=== PATIENT | female | born 1955 | race American Indian/Alaskan Native ===

== ENCOUNTER 2017-05-22 15:49 | Emergency (ER) | payer MEDICARE ==
[2017-05-22] MEDS ORDERED: NORCO 5/325 PO ONE (20:55)
--- NOTE | 2017-05-22 21:02 | Emergency Department Report ---
ED General Adult HPI - General Chief complaint: Urogenital-Female Stated complaint: NEED CATH CHANGE Time Seen by Provider: 05/22/17 20:45 Source: patient, family Mode of arrival: Wheelchair Limitations: Physical Limitation - History of Present Illness Initial comments: PT states that she needs her catheter changed. PT states that she will have pains from the catheter and it will feel like something is sticking her. PT states that she moved from [place], [place] one month ago and she has PCP but has not had home health established yet. PT states she is currently living with her daughter. PT states she was in another ED on 05-05-17 for UTI. PT states her catheter was changed at that time. 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 PT States she saw her PCP today. PT states her PCP did a urinalysis and dx her with UTI. PT states a urine culture is pending and that she was given an RX for an antibiotic and was told to go to the ED to have her wheeler changed. -: Gradual, days(s) Location: pelvis Quality: stabbing Consistency: intermittent Associated Symptoms: denies: fever/chills, nausea/vomiting Treatments Prior to Arrival: none - Related Data Allergies Allergy/AdvReac Type Severity Reaction Status Date / Time No Known Allergies Allergy Unverified 05/22/17 17:41 ED Review of Systems ROS: Stated complaint: NEED CATH CHANGE Other details as noted in HPI Comment: All other systems reviewed and negative Constitutional: denies: chills, fever Gastrointestinal: abdominal pain (intermittent bladder spasms ). denies: nausea , vomiting Genitourinary: other (cloudy urine, pain ) ED Past Medical Hx - Past Medical History Previous Medical History?: Yes Additional medical history: Ms, Frequent UTI - Surgical History Past Surgical History?: Yes Additional Surgical History: Back surgery, Hysterectomy - Social History Smoking Status: Never Smoker Substance Use Type: Prescribed ED Physical Exam - General Limitations: Physical Limitation General appearance: alert, in no apparent distress - Head Head exam: Present: atraumatic, normocephalic, normal inspection - Eye Eye exam: Present: normal appearance. Absent: conjunctival injection - ENT ENT exam: Present: normal exam, mucous membranes moist, normal external ear exam - Neck Neck exam: Present: normal inspection, full ROM - Respiratory Respiratory exam: Present: normal lung sounds bilaterally. Absent: respiratory distress, chest wall tenderness - Cardiovascular Cardiovascular Exam: Present: regular rate, normal rhythm, normal heart sounds - GI/Abdominal GI/Abdominal exam: Present: soft, tenderness (suprapubic tenderness to deep palpation ), normal bowel sounds. Absent: distended - External exam: Present: other (wheeler in place, cloudy urine noted to bed side bag ) - Extremities Exam Extremities exam: Present: normal inspection, normal capillary refill, calf tenderness - Back Exam Back exam: Present: normal inspection, full ROM - Neurological Exam Neurological exam: Present: alert, oriented X3 - Psychiatric Psychiatric exam: Present: normal affect, normal mood - Skin Skin exam: Present: warm, dry, intact, normal color ED Course Vital Signs 05/22/17 17:41 Temperature 98.3 F Pulse Rate 74 Respiratory 18 Rate Blood Pressure 133/72 O2 Sat by Pulse 100 Oximetry - Reevaluation(s) Reevaluation #1: 05/22/17 21:06 PT aware of plan of care. Reevaluation #2: 05/22/17 23:04 PT's wheeler changed. PT treated empirically for UTI while in ED. PT states she has her RX from her PCP and will follow up with PCP for urine culture. - Pulse Oximetry Interpretation Digit-Finger Initial Pulse Oximetry Readin Actions Taken: none ED Medical Decision Making - Differential Diagnosis uti, dysuria Critical Care Time: No Critical care attestation.: If time is entered above; I have spent that time in minutes in the direct care of this critically ill patient, excluding procedure time. ED Disposition Clinical Impression: Encounter for Wheeler catheter replacement, Dysuria Disposition: TO HOME OR SELFCARE Is pt being admited?: No Does the pt Need Aspirin: No Condition: Stable Instructions: Urinary Tract Infection in Women (ED), Wheeler Catheter Insertion ( ED), Wheeler Catheter Placement and Care (ED), Urinary Leg Bag (GEN) Additional Instructions: Take the antibiotics that your doctor prescribed you today Return to the ED if you are having pain in your side, fevers, vomiting or concerns. Referrals: MAUREEN MOSQUEDA [Other] - 3-5 Days Time of Disposition: 22:33
[2017-05-22] MEDS ORDERED: BACTRIM DS PO ONE (22:33)
[2017-05-22 23:42] VITALS: BP 126/75
== END 2017-05-22 23:10 | disposition home or self-care (01) ==
LOC: ED 15:49
DX: Z46.6 Encounter for fitting and adjustment of urinary device (principal); R30.0 Dysuria
CPT/HCPCS: 51702

== ENCOUNTER 2018-12-18 08:45 | Emergency (ER) | payer MEDICARE ==
--- NOTE | 2018-12-18 13:26 | Emergency Department Report ---
ED Female HPI - General Chief complaint: Urogenital-Female Stated complaint: CATHETER NEED CHANGE Time Seen by Provider: 12/18/18 13:08 Source: family Mode of arrival: Wheelchair Limitations: No Limitations - History of Present Illness Initial comments: Mrs. Soto is a very pleasant 62-year-old female with history of MS who has irritation at insertion point of Mcfarlane catheter at the urethra. She normally has home health nurse to change his Mcfarlane catheter. However due to change in health insurance, the service appear to be haven't halted. She is followed by both PCP and neurologist. She's has dark cloudy urine in the collection bag with sediment throughout the tubing. She denies fever. SHe denies abdominal pain. She denies malaise. She also requests that I evaluate her sacral decubitus ulcer. She only has home health care weekly basis. Her caregiver Nic is at the bedside. Patient is bedbound due to multiple sclerosis. MD Complaint: other (irritation at Mcfarlane insertion point) -: Gradual, days(s) (several) Severity: mild Quality: burning Consistency: constant Improves with: none Worsens with: none Are you Now?: No - Related Data Previous Rx's Medication Instructions Recorded Last Taken Type Cephalexin [Keflex] 500 mg PO QID 10 Days #40 capsule 12/18/18 Unknown Rx Allergies Allergy/AdvReac Type Severity Reaction Status Date / Time No Known Allergies Allergy Verified 12/18/18 08:46 ED Review of Systems ROS: Stated complaint: CATHETER NEED CHANGE Other details as noted in HPI Comment: All other systems reviewed and negative Constitutional: denies: fever, malaise Respiratory: denies: cough Cardiovascular: denies: chest pain ED Past Medical Hx - Past Medical History Previous Medical History?: Yes Additional medical history: Ms, Frequent UTI - Surgical History Additional Surgical History: Back surgery, Hysterectomy - Social History Smoking Status: Never Smoker Substance Use Type: Prescribed - Medications Home Medications: Home Medications Medication Instructions Recorded Confirmed Last Taken Type Cephalexin [Keflex] 500 mg PO QID 10 Days #40 capsule 12/18/18 Unknown Rx ED Physical Exam - General Limitations: No Limitations General appearance: alert, in no apparent distress - Head Head exam: Present: atraumatic, normocephalic - Eye Eye exam: Present: normal appearance - ENT ENT exam: Present: mucous membranes moist - Neck Neck exam: Present: normal inspection, full ROM - Respiratory Respiratory exam: Present: normal lung sounds bilaterally. Absent: respiratory distress, wheezes, rales, rhonchi - Cardiovascular Cardiovascular Exam: Present: regular rate, normal rhythm, normal heart sounds. Absent: systolic murmur, diastolic murmur, rubs, gallop - GI/Abdominal GI/Abdominal exam: Present: soft, normal bowel sounds. Absent: distended, tenderness, guarding, rebound - External exam: Present: normal external exam, other (Mcfarlane catheter in place: Dark cloudy urine in collection bag + sediment throughout tubing). Absent: erythema, swelling, lesions, lacerations, ecchymosis, bleeding - Extremities Exam Extremities exam: Present: normal inspection - Back Exam Back exam: Present: normal inspection - Neurological Exam Neurological exam: Present: alert, oriented X3 - Psychiatric Psychiatric exam: Present: normal affect, normal mood - Skin Skin exam: Present: intact, other (stage I sacral decubitus ulcer without infection). Absent: rash ED Medical Decision Making - Medical Decision Making Mrs. Soto presents with need for Mcfarlane catheter change. Mcfarlane catheter is normally changed monthly. She also has evidence of urinary tract infection. Prescribed Keflex. Critical care attestation.: If time is entered above; I have spent that time in minutes in the direct care of this critically ill patient, excluding procedure time. ED Disposition Clinical Impression: Urinary catheter (Mcfarlane) change required, Complicated UTI (urinary tract infection) Disposition: - TO HOME OR SELFCARE Is pt being admited?: No Does the pt Need Aspirin: No Condition: Stable Instructions: Mcfarlane Catheter Placement and Care (ED), Urinary Tract Infection in Women (ED) Prescriptions: Cephalexin [Keflex] 500 mg PO QID 10 Days #40 capsule Referrals: TRUDI GONZALEZ MD [Primary Care Provider] - 3-5 Days
[2018-12-18] MEDS ORDERED: KEFLEX PO ONE (13:28)
[2018-12-18 13:58] VITALS: BP 132/57
[2018-12-18 14:50] LABS: Mucus,Urine FEW /HPF
[2018-12-18 14:57] LABS: Bilirubin,Urine NEG (Negative); Blood,Urine NEG (Negative); Color,Urine Yellow (Yellow); Protein,Urine <15 mg/dL mg/dL (Negative); Urobilinogen,Urine < 2.0 mg/dL (<2.0)
== END 2018-12-18 14:48 | disposition home or self-care (01) ==
LOC: ED 08:45
DX: N39.0 Urinary tract infection, site not specified (principal); Z90.710 Acquired absence of both cervix and uterus
CPT/HCPCS: 51702; 81001; 87086; 99283

== ENCOUNTER 2019-04-21 23:33 | Emergency (ER) | payer MEDICARE ==
--- NOTE | 2019-04-22 00:06 | Emergency Department Report ---
ED Female HPI - General Chief complaint: Urogenital-Female Stated complaint: CATHETER CAME OUT Time Seen by Provider: 04/22/19 00:01 Source: patient, EMS Mode of arrival: Stretcher Limitations: Physical Limitation - History of Present Illness Initial comments: Mrs. Brad Negron is a very pleasant 63-year-old male with history of multiple sclerosis. She is currently bedridden. She came by EMS for Mcfarlane catheter insertion. She had a new Mcfarlane catheter inserted 2 days ago on Monday. The Mcfarlane catheter dislodged. She does not have any other concerns. Complaint: other (Mcfarlane catheter dislodged) -: Sudden, This afternoon Improves with: none Worsens with: none Associated Symptoms: denies other symptoms - Related Data Previous Rx's Medication Instructions Recorded Last Taken Type Cephalexin [Keflex] 500 mg PO QID 10 Days #40 capsule 12/18/18 Unknown Rx Allergies Allergy/AdvReac Type Severity Reaction Status Date / Time No Known Allergies Allergy Verified 12/18/18 08:46 ED Review of Systems ROS: Stated complaint: CATHETER CAME OUT Other details as noted in HPI Constitutional: denies: fever, malaise Genitourinary: denies: urgency, dysuria, frequency, hematuria, discharge Musculoskeletal: denies: back pain ED Past Medical Hx - Past Medical History Previous Medical History?: Yes Hx Hypertension: Yes Additional medical history: Ms, Frequent UTI - Surgical History Additional Surgical History: Back surgery, Hysterectomy - Social History Smoking Status: Never Smoker Substance Use Type: None - Medications Home Medications: Home Medications Medication Instructions Recorded Confirmed Last Taken Type Cephalexin [Keflex] 500 mg PO QID 10 Days #40 capsule 12/18/18 Unknown Rx ED Physical Exam - General Limitations: Physical Limitation General appearance: alert, in no apparent distress - Head Head exam: Present: atraumatic, normocephalic - Eye Eye exam: Absent: scleral icterus, conjunctival injection - ENT ENT exam: Present: mucous membranes moist - Neck Neck exam: Present: normal inspection, full ROM. Absent: tenderness, meningismus - Respiratory Respiratory exam: Absent: respiratory distress - Neurological Exam Neurological exam: Present: alert, oriented X3 - Psychiatric Psychiatric exam: Present: normal affect, normal mood ED Course Vital Signs 04/21/19 23:47 Temperature 98.3 F Pulse Rate 78 Respiratory 18 Rate Blood Pressure 133/73 O2 Sat by Pulse 100 Oximetry ED Medical Decision Making - Medical Decision Making Mrs. Negron presents via EMS from home for Mcfarlane catheter placement. Mcfarlane catheter was placed by nurse. She will be discharged home. Critical care attestation.: If time is entered above; I have spent that time in minutes in the direct care of this critically ill patient, excluding procedure time. ED Disposition Clinical Impression: Mcfarlane catheter problem, Multiple sclerosis Disposition: DC-01 TO HOME OR SELFCARE Is pt being admited?: No Does the pt Need Aspirin: No Condition: Stable
[2019-04-22 02:00] VITALS: BP 125/67
== END 2019-04-22 02:00 | disposition home or self-care (01) ==
LOC: ED 23:33
DX: T83.028A Displacement of other urinary catheter, initial encounter (principal); I10 Essential (primary) hypertension; Z90.710 Acquired absence of both cervix and uterus; Z98.890 Other specified postprocedural states; Z79.899 Other long term (current) drug therapy; Y84.8 Other medical procedures as the cause of abnormal reaction of the patient, or of later complication, without mention of misadventure at the time of the procedure; Y92.89 Other specified places as the place of occurrence of the external cause
CPT/HCPCS: 51702; 99283

== ENCOUNTER 2019-05-23 20:31 | Emergency (ER) | payer MEDICARE ==
--- NOTE | 2019-05-23 20:49 | Emergency Department Report ---
HPI - General Chief Complaint: Tube Replacement Time Seen by Provider: 05/23/19 20:40 - HPI HPI: 63-year-old -[place] female presents to the emergency department via EMS from home with the complaint of a malfunctioning Mcfarlane catheter. The patient has this in place secondary to her multiple sclerosis. She says that she is in between home health care agency's and therefore does not have anyone to change it for her but it feels like it is not draining. She denies any abdominal pain or distention, fever, nausea or vomiting. She says that this has been happening about every 3 weeks. She recently was on some antibiotics for a urinary tract infection. Her primary care physician is Dr. Chavez and her urologist is Dr. Cisneros.. ED Past Medical Hx - Past Medical History Hx Hypertension: Yes Additional medical history: Ms, Frequent UTI - Surgical History Additional Surgical History: Back surgery, Hysterectomy - Social History Smoking Status: Never Smoker Substance Use Type: None - Medications Home Medications: Home Medications Medication Instructions Recorded Confirmed Last Taken Type Cephalexin [Keflex] 500 mg PO QID 10 Days #40 capsule 12/18/18 Unknown Rx ED Review of Systems ROS: Stated complaint: CATHETER PAIN Other details as noted in HPI Comment: All other systems reviewed and negative Constitutional: denies: chills, fever Respiratory: denies: cough, shortness of breath Cardiovascular: denies: chest pain, palpitations Gastrointestinal: denies: abdominal pain, vomiting Genitourinary: denies: dysuria, discharge Musculoskeletal: denies: back pain, arthralgia Physical Exam - Physical Exam Physical Exam: GENERAL: The patient is well-developed well-nourished. HENT: Normocephalic. Atraumatic. Patient has moist mucous membranes. EYES: Extraocular motions are intact. NECK: Supple. Trachea is midline. CHEST/LUNGS: Clear to auscultation. There is no respiratory distress noted. HEART/CARDIOVASCULAR: Regular. There is no tachycardia. There is no murmur. ABDOMEN: Abdomen is soft, nontender. Patient has normal bowel sounds. There is no abdominal distention. SKIN: Skin is warm and dry. NEURO: The patient is awake, alert, and oriented. The patient is cooperative. The patient has normal speech. MUSCULOSKELETAL: There is no tenderness or deformity. There is no evidence of acute injury. ED Medical Decision Making - Medical Decision Making This patient presents with the complaint of malfunctioning Mcfarlane catheter. The Mcfarlane catheter was replaced and now appears to be patent and is draining urine. The urine was tested and does not appear consistent with any significant urinary tract infection. There are only 10 white blood cells found in the urine and it is negative for nitrites. The patient just finished a course of antibiotics. She has good follow-up with primary care and urology. She will return to the ER with any worsening of her symptoms or any acute distress. Vital signs stable throughout ED course including being afebrile. - Differential Diagnosis UTI, mechanical obstruction, MS Critical Care Time: No Critical care attestation.: If time is entered above; I have spent that time in minutes in the direct care of this critically ill patient, excluding procedure time. ED Disposition Clinical Impression: Mcfarlane catheter problem Qualifiers: Encounter type: initial encounter Qualified Code(s): T83.9XXA - Unspecified complication of genitourinary prosthetic device, implant and graft, initial encounter Disposition: TO HOME OR SELFCARE Is pt being admited?: No Condition: Stable Instructions: Mcfarlane Catheter Placement and Care (ED) Additional Instructions: Please follow-up with your primary care physician and urologist in the next few days. Return to the emergency Department with any worsening of your symptoms or any acute distress. Referrals: TRUDI CHAVEZ MD [Primary Care Provider] - 2-3 Days GAGE PUGA MD [Staff Physician] - 2-3 Days Time of Disposition: 22:01
[2019-05-23 21:50] LABS: Bacteria,Urine 1+ /HPF (Negative); Bilirubin,Urine NEG (Negative); Blood,Urine SM (Negative); Color,Urine Yellow (Yellow); Protein,Urine <15 mg/dL mg/dL (Negative); RBC,Urine < 1.0 /HPF (0.0-6.0); Urobilinogen,Urine < 2.0 mg/dL (<2.0)
[2019-05-23 22:29] VITALS: BP 130/76
== END 2019-05-23 23:50 | disposition home or self-care (01) ==
LOC: ED 20:31
DX: T83.091A Other mechanical complication of indwelling urethral catheter, initial encounter (principal); I10 Essential (primary) hypertension; G35 Multiple sclerosis; Z90.710 Acquired absence of both cervix and uterus; Y92.89 Other specified places as the place of occurrence of the external cause
CPT/HCPCS: 51702; 81001; 87086